=== PATIENT | female | born 1950 | race Caucasian/White ===

== ENCOUNTER 2019-06-13 08:16 | Outpatient (CLI) | payer MEDICARE | END 2019-06-13 23:59 | disposition home or self-care (01) | LOC: STAR 08:16 | PROVIDERS: ATTEND Orthopaedic Surgery | DX: Z01.818 Encounter for other preprocedural examination (principal); M16.12 Unilateral primary osteoarthritis, left hip | CPT/HCPCS: 36415; 80053; 85025; 87081; 93005 ==

== ENCOUNTER → 2020-06-17 | Outpatient (CLI) | payer MEDICARE ==
[~2020-06-17] MED LIST: ALEN70TA6 PO; ATOR40TA78 PO; OXYC5CAP2 PO; lisinopril PO; meloxicam PO
[2020-06-17 10:53] LABS: BASOPHILS # (AUTO) 0.02 x10^3/uL (0-0.1); BASOPHILS % (AUTO) 0 % (0-1); EOSINOPHILS # (AUTO) 0.06 x10^3/uL (0-0.4); EOSINOPHILS % (AUTO) 1 % (1-7); LYMPHOCYTES # (AUTO) 2.15 x10^3/uL (1-3.4); LYMPHOCYTES % (AUTO) 40 % (22-44); MD NO; MEAN CORPUSCULAR HEMOGLOBIN 31.2 pg (27.0-34.8); MEAN CORPUSCULAR HGB CONC 32.7 g/dL (32.4-35.8); MEAN CORPUSCULAR VOLUME 95.6 fL (80-100); MONOCYTES # (AUTO) 0.46 x10^3/uL (0.2-0.8); MONOCYTES % (AUTO) 9 % (2-9); NEUTROPHILS # (AUTO) 2.72 x10^3/uL (1.8-6.8); NEUTROPHILS % (AUTO) 50 % (42-75); PLATELET COUNT 236 x10^3/uL (130-400); RED BLOOD COUNT 4.08 x10^6/uL (3.82-5.3); RED CELL DISTRIBUTION WIDTH 13.5 % (9.6-15.2)
[2020-06-17 11:02] LABS: ALANINE AMINOTRANSFERASE 37 U/L (12-78); ALBUMIN 3.9 g/dL (3.4-5.0); ANION GAP 5 mmol/L (5-15); CALCIUM 8.9 mg/dL (8.5-10.1); CHLORIDE 104 mmol/L (98-107); CREATININE 0.72 mg/dL (0.55-1.02)
[2020-06-17 11:04] LABS: ALKALINE PHOSPHATASE 68 U/L (45-117); BILIRUBIN,TOTAL 0.6 mg/dL (0.2-1.0); TOTAL PROTEIN 6.9 g/dL (6.4-8.2)
== END | disposition home or self-care (01) ==
LOC: STAR 09:41
PROVIDERS: ATTEND Orthopaedic Surgery
DX: Z01.818 Encounter for other preprocedural examination (principal); Z11.59 Encounter for screening for other viral diseases; M16.11 Unilateral primary osteoarthritis, right hip; M25.551 Pain in right hip
CPT/HCPCS: 36415; 80053; 85025; 87081; 87635; 93005

== ENCOUNTER 2020-06-21 08:35 | Observation (INO) | payer MEDICARE ==
[~2020-06-21] VITALS: Ht 154.9 cm; Wt 56.8 kg
[~2020-06-21 08:35] MED LIST changes: +EPINEPHRINE 1 MG/ML, 1ML ONE; +KETOROLAC 60 MG/2 ML ONE; +ROPIvacaine/PF 0.2%, 20 ML ONE; +SODIUM CHLORIDE 0.9% 50 ML ONE; +TRANEXAMIC ACID 100 MG/ML, 10ML ONE; +VANCOMYCIN 1,000 MG ONE
[2020-06-21] MEDS ORDERED: FENTANYL PF 250 MCG/5ML ONE (09:00)
[2020-06-21] MEDS ORDERED: MIDAZOLAM 1 MG/ML, 2ML ONE (09:00)
[2020-06-21] MEDS ORDERED: ROCURONIUM 10MG/ML,5ML ONE (09:02)
[2020-06-21] MEDS ORDERED: DEXAMETHASONE 4 MG/ML, 1ML ONE ×2 (09:02)
[2020-06-21] MEDS ORDERED: SUCCINYLCHOLINE 20 MG/ML, 10ML ONE (09:02)
[2020-06-21] MEDS ORDERED: PROPOFOL 10 MG/ML, 20ML ONE (09:02)
[2020-06-21] MEDS ORDERED: CLINDAMYCIN 150 MG/ML, 6ML ONE (09:03)
[2020-06-21] MEDS ORDERED: LACTATED RINGERS 1,000 ML IV SCH (09:05)
[2020-06-21] MEDS ORDERED: ACET-1600 PO (09:10)
[2020-06-21 09:14] VITALS: BP 143/84
[2020-06-21] MEDS ORDERED: ACETAMINOPHEN 500 MG TABLET PO ONE (09:30)
[2020-06-21] MEDS ORDERED: CHLORHEXIDINE 15 ML UDC MM ONE (09:30)
[2020-06-21] MEDS ORDERED: ONDANSETRON 2MG/ML, 2ML ONE (10:09)
[2020-06-21] MEDS ORDERED: SUGAMMADEX 200 MG/2 ML IVPush ONE (10:09)
[2020-06-21] MEDS ORDERED: PROMETHAZINE 12.5 MG SUPP PR PRN ×2 (10:30→12:00)
[2020-06-21] MEDS ORDERED: LABETALOL 5MG/ML, 20ML IV PRN (10:30)
[2020-06-21] MEDS ORDERED: ONDANSETRON 2MG/ML, 2ML IVPush PRN ×2 (10:30→12:00)
[2020-06-21] MEDS ORDERED: hydrALAzine 20 MG/ML, 1ML IV PRN (10:30)
[2020-06-21] MEDS ORDERED: ALBUTEROL SULFATE 2.5 MG/3 ML NPPB PRN (10:30)
[2020-06-21] MEDS ORDERED: HYDROmorphone 1 MG/ML, 1ML INJ IVPush PRN ×2 (10:30→12:00)
[2020-06-21] MEDS ORDERED: DIPHENHYDRAMINE 50 MG/ML, 1ML IVPush PRN ×3 (10:30→12:00)
[2020-06-21] MEDS ORDERED: DIAZEPAM 5 MG/ML, 2ML IVPush PRN (10:30)
[2020-06-21] MEDS ORDERED: OXYcodone 5 MG/5 ML ORAL.SOL UDC PO PRN (10:30)
[2020-06-21] MEDS ORDERED: PROMETHAZINE 25 MG/ML, 1ML IVPush PRN (10:30)
[2020-06-21] MEDS ORDERED: MIDAZOLAM 1 MG/ML, 2ML IV PRN (10:30)
[2020-06-21] MEDS ORDERED: MEPERIDINE/PF 25MG/0.5ML IVPush PRN (10:30)
[2020-06-21] MEDS ORDERED: EPHEDRINE 50 MG/ML, 1ML IVPush PRN (10:30)
[2020-06-21] MEDS ORDERED: FENTANYL PF 100 MCG/2ML ONE ×2 (11:27→12:04)
[2020-06-21] MEDS ORDERED: BISACODYL 10 MG SUPP PR PRN (12:00)
[2020-06-21] MEDS ORDERED: ONDANSETRON 2MG/ML, 2ML IV PRN (12:00)
[2020-06-21] MEDS ORDERED: POLYETHYLENE GLYCOL 17 GM PACKET PO PRN (12:00)
[2020-06-21] MEDS ORDERED: DIPHENHYDRAMINE 25 MG CAPSULE PO PRN (12:00)
[2020-06-21] MEDS ORDERED: PROMETHAZINE 25 MG/ML, 1ML IM PRN (12:00)
[2020-06-21] MEDS ORDERED: PSYLLIUM PACKET PO PRN (12:00)
[2020-06-21] MEDS ORDERED: MAGNESIUM HYDROXIDE 8%, 30ML UDC PO PRN (12:00)
[2020-06-21] MEDS ORDERED: SENNA/DOCUSATE TABLET PO PRN (12:00)
[2020-06-21] MEDS ORDERED: DIAZEPAM 5 MG TABLET PO PRN (12:00)
[2020-06-21] MEDS ORDERED: TRANEXAMIC ACID 1,000 MG in SODIUM CHLORIDE 0.9% 100 ML IVPB ONE (12:00)
[2020-06-21] MEDS ORDERED: ALUMINUM/MAG/SIMETHICONE 30 ML UDC PO PRN (12:00)
[2020-06-21] MEDS ORDERED: OXYcodone IR 5MG TABLET PO PRN ×2 (12:00)
[2020-06-21] MEDS ORDERED: MEPERIDINE/PF 25MG/ML,1ML ONE (12:03)
[2020-06-21] MEDS ORDERED: OXYcodone 5 MG/5 ML ORAL.SOL UDC ONE (12:03)
[2020-06-21] MEDS: FENTANYL PF 100 MCG/2ML IV PRN ×2 (12:14→12:37)
[2020-06-21 13:45] VITALS: BP 103/61
[2020-06-21 13:53] VITALS: BP 103/61
[2020-06-21] MEDS ORDERED: KETOROLAC 30 MG/1 ML IV SCH (14:00)
[2020-06-21] MEDS: ACETAMINOPHEN 500 MG TABLET PO SCH ×2 (14:19→20:46)
[2020-06-21] MEDS: KETOROLAC 30 MG/1 ML IV SCH (16:08)
[2020-06-21] MEDS: SODIUM CHLORIDE 0.9% 1,000 ML IV SCH (16:09)
[2020-06-21] MEDS: ASPIRIN 81 MG TABLET EC PO SCH (17:31)
[2020-06-21] MEDS: CLINDAMYCIN PMX 600MG/50ML 50 ML IVPB SCH (17:31)
[2020-06-21 18:32] VITALS: BP 99/66
[2020-06-21] MEDS ORDERED: TAMSULOSIN 0.4 MG CAP.ER.24H PO ONE (19:00)
[2020-06-21] MEDS: DOCUSATE 100 MG CAPSULE PO SCH (20:46)
[2020-06-21] MEDS ORDERED: ATORVASTATIN 40 MG TABLET PO SCH (21:00)
[2020-06-22] VITALS (11 sets, daily range): BP systolic 55–101; BP diastolic 36–65
[2020-06-22] MEDS: KETOROLAC 30 MG/1 ML IV SCH ×2 (00:07→08:06)
[2020-06-22] MEDS: CLINDAMYCIN PMX 600MG/50ML 50 ML IVPB SCH (02:18)
[2020-06-22] MEDS: ACETAMINOPHEN 500 MG TABLET PO SCH ×3 (02:18→13:39)
[2020-06-22] MEDS: SODIUM CHLORIDE 0.9% 1,000 ML IV SCH (05:20)
[2020-06-22] MEDS ORDERED: ASPIRIN 81 MG TABLET EC PO SCH (06:00)
[2020-06-22] MEDS ORDERED: SODIUM CHLORIDE 0.9%, 500ML IVBOLUS ONE ×2 (06:00→07:00)
[2020-06-22] MEDS ORDERED: DEXAMETHASONE 4 MG/ML, 1ML IVPush SCH (06:00)
[2020-06-22] MEDS: ASPIRIN 81 MG TABLET EC PO SCH (06:26)
[2020-06-22] MEDS ORDERED: RIVAROXABAN 10 MG TABLET PO SCH (07:00)
[2020-06-22] MEDS: DOCUSATE 100 MG CAPSULE PO SCH (08:06)
[2020-06-22] MEDS ORDERED: MULTIVITAMINS/MINERALS TABLET PO SCH (09:00)
[2020-06-22] MEDS ORDERED: LISINOPRIL 5 MG TABLET PO SCH (09:00)
[2020-06-27] MEDS ORDERED: ALENDRONATE 70 MG TABLET PO SCH (06:30)
== END 2020-06-22 17:22 | disposition home or self-care (01) ==
LOC: OUT 08:35 → ORIP 11:46 → 4NE 13:42
PROVIDERS: ADMIT Orthopaedic Surgery; ATTEND Orthopaedic Surgery
DX: M16.11 Unilateral primary osteoarthritis, right hip (principal); Z20.828 Contact with and (suspected) exposure to other viral communicable diseases; D62 Acute posthemorrhagic anemia; I10 Essential (primary) hypertension; E78.5 Hyperlipidemia, unspecified; Z79.899 Other long term (current) drug therapy; Z96.641 Presence of right artificial hip joint
CPT/HCPCS: 27130; 36415; 72170; 85014; 85018; 86850; 86900; 96361; 96365; 96366; 96375; 96376; 97161; C1713; C1776; G0378; J0171; J0330; J1100; J1885; J2175; J2250; J2405; J2704; J2795; J3010; J7030; J7040; J7120; S0077; J3370